=== PATIENT | female | born 1980 | race Caucasian/White ===

== ENCOUNTER 2020-01-30 16:15 | Emergency (ER) | payer OTHER ==
[~2020-01-30] VITALS: Ht 157.5 cm; Wt 65.8 kg
[2020-01-30] MEDS ORDERED: NORCO 5-325 TA1 EAC1 PO (18:49)
[2020-01-30] MEDS ORDERED: NAPROSYN500 MG PO (18:49)
[2020-01-30 19:08] VITALS: BP 128/74
== END 2020-01-30 19:08 | disposition home or self-care (01) ==
LOC: M.ERS 16:15
DX: S20.211A Contusion of right front wall of thorax, initial encounter (principal); M94.0 Chondrocostal junction syndrome [Tietze]; F17.210 Nicotine dependence, cigarettes, uncomplicated; Z90.49 Acquired absence of other specified parts of digestive tract; Z98.51 Tubal ligation status; Z88.0 Allergy status to penicillin; X58.XXXA Exposure to other specified factors, initial encounter; Y93.89 Activity, other specified; Y92.89 Other specified places as the place of occurrence of the external cause; Y99.8 Other external cause status